=== PATIENT | male | born 1965 | race Hispanic/Latino ===

== ENCOUNTER 2020-02-05 15:13 | Emergency (ER) | payer OTHER ==
[~2020-02-05] VITALS: Ht 167.6 cm; Wt 81.6 kg
[~2020-02-05 15:13] MED LIST: AMLODIPINE-ATO1 EAC2 PO; METFORMIN HCL500 MG PO; SERTRALINE HCL100 MG PO
[2020-02-05] MEDS ORDERED: INSULIN REGULAR, HUMAN 100 UNIT/1 ML 3ML VIAL IV STA (15:24)
[2020-02-05] MEDS ORDERED: SODIUM CHLORIDE 0.9% 1000ML 1,000 ML IV STA (15:24)
--- NOTE | 2020-02-05 15:27 | Emergency Department Note ---
History of Present Illnes History of Present Illness History of Present Illness This is a 54 year old male with increasing weakness in the past 1 weeks with polyuria and polydipsia .BS elevated at 600+ . Past Medical/Family History Physician Review I have reviewed the patient's past medical and family history. Any updates have been documented here. Past Medical History Other Medical History: HIGH CHOLESTEROL Other Surgery: BILATERAL LASIK Other Last Tetanus: >10 YEARS Physical Exam Related Data Allergies: Coded Allergies: No Known Allergies (Unverified , 10/16/12) Physical Exam CONSTITUTIONAL HENT EYES NECK PULMONARY CARDIOVASCULAR GASTROINTESTINAL GENITOURINARY SKIN MUSCULOSKELETAL NEUROLOGICAL PSYCHOLOGICAL Assessment & Plan Assessment & Plan Final Impression: (1) Hyperglycemia Home Meds Reported Medications Metformin Hcl (METFORMIN HCL) 500 Mg Tablet, 500 MG PO BID, #20 TAB 01/27/15 Sertraline Hcl (SERTRALINE HCL) 100 Mg Tablet, 100 MG PO BID, TAB 01/27/15 Amlodipine/Atorvastatin (AMLODIPINE-ATORVAST 5-40 MG) 1 Each Tablet, 5 MG PO DAILY 10/16/12 JOANA KEYS DO Feb 05, 2020 15:27
== END 2020-02-05 16:37 | disposition home or self-care (01) ==
LOC: ER 16:33
DX: E11.65 Type 2 diabetes mellitus with hyperglycemia (principal); R53.1 Weakness; I10 Essential (primary) hypertension; E78.5 Hyperlipidemia, unspecified
CPT/HCPCS: 99282

== ENCOUNTER 2024-12-03 18:50 | Emergency (ER) | payer OTHER ==
[~2024-12-03] VITALS: Ht 167.6 cm; Wt 90.7 kg
[2024-12-03] MEDS: ACETAMINOPHEN 325 MG TAB PO STA (21:03)
[2024-12-03 21:11] LABS: BASOPHILS % 0.2 % (0.0-1.0); EOSINOPHILS # (AUTO) 0.1 (0.0-0.4); EOSINOPHILS % 1.4 % (0.0-6.0); HEMATOCRIT 42.5 % (38.2-49.6); HEMOGLOBIN 13.8 g/dL (14.0-18.0); LYMPHOCYTES # (AUTO) 0.5 (1.0-3.2); LYMPHOCYTES % 10.2 % (18.0-39.1); MEAN CORPUSCULAR HEMOGLOBIN 28.8 pg (28-32); MEAN CORPUSCULAR HGB CONC 32.5 g/dL (31-35); MEAN CORPUSCULAR VOLUME 88.7 fL (81-99); MONOCYTES # (AUTO) 0.8 (0.2-0.8); MONOCYTES % 15.6 % (4.4-11.3); NEUTROPHILS # (AUTO) 3.5 (2.1-6.9); NEUTROPHILS % 72.4 % (38.7-80.0); PLATELET COUNT 136 x10e3/uL (140-360); RED BLOOD COUNT 4.79 x10e6/uL (4.3-5.7); RED CELL DISTRIBUTION WIDTH 13.5 % (11.7-14.4); WHITE BLOOD COUNT 4.88 x10e3/uL (4.8-10.8)
[2024-12-03 21:21] LABS: STREPTOCOCCUS GRP A ANTIGEN NEGATIVE (NEGATIVE)
[2024-12-03 21:27] LABS: ALBUMIN 3.9 g/dL (3.5-5.0); ANION GAP 17.8 mmol/L (8-16); BILIRUBIN,TOTAL 0.5 mg/dL (0.2-1.2); CALCIUM 9.6 mg/dL (8.4-10.2); CREATININE, SERUM 1.4 mg/dL (0.72-1.25); POTASSIUM 4.8 mmol/L (3.5-5.1); TOTAL PROTEIN 7.9 g/dL (6.5-8.1)
[2024-12-03 21:28] LABS: INFLUENZA A AG POSITIVE (NEGATIVE)
[2024-12-03 21:29] LABS: CORONAVIRUS COVID-19 AG NEGATIVE (NEGATIVE); INFLUENZA B AG NEGATIVE (NEGATIVE); TROPONIN I 0.004 ng/mL (0-0.300)
[2024-12-03] MEDS: SODIUM CHLORIDE 0.9% 1000ML 1,000 ML IV STA (22:51)
[2024-12-03] MEDS ORDERED: XOFLUZA80 MG PO (23:15)
[2024-12-03] MEDS ORDERED: KETOROLAC TROME10 MG PO (23:15)
[2024-12-03] MEDS: KETOROLAC TROMETHAMINE 30 MG/ML VIAL IV STA (23:23)
[2024-12-03 23:36] VITALS: PULSE 78; RESP 16; TEMP 98.9; O2SAT 97
== END 2024-12-03 23:42 | disposition home or self-care (01) ==
LOC: ER 18:57
DX: R50.9 Fever, unspecified (principal); J10.1 Influenza due to other identified influenza virus with other respiratory manifestations; R07.89 Other chest pain; Z11.52 Encounter for screening for COVID-19; R94.31 Abnormal electrocardiogram [ECG] [EKG]
CPT/HCPCS: 36415; 71045; 80053; 82550; 83518; 83690; 83880; 84484; 85025; 87070; 87428; 93005; 99284; J1885; J7030